=== PATIENT | male | born 1990 ===

== ENCOUNTER 2018-11-14 01:30 | Emergency (ER) | payer OTHER ==
[2018-11-14 01:54] VITALS: BP 145/83; PULSE 85; RESP 17; TEMP 98.3; O2SAT 99
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
--- NOTE | 2018-11-14 09:55 | RAD ---
PROCEDURE: Radiographs of the left great toe. TECHNIQUE:: AP radiograph of the left foot, with oblique and lateral view of the left great toe. COMPARISON: None. FINDINGS: BONES: Normal. No fracture. JOINTS: Normal. SOFT TISSUES: Normal. OTHER FINDINGS: None. IMPRESSION: Normal left great toe radiographs.
== END 2018-11-14 03:20 | disposition home or self-care (01) ==
LOC: H.ER 01:30
DX: S99.921A Unspecified injury of right foot, initial encounter (principal); S99.922A Unspecified injury of left foot, initial encounter; S40.012A Contusion of left shoulder, initial encounter; V43.52XA Car driver injured in collision with other type car in traffic accident, initial encounter; Y92.410 Unspecified street and highway as the place of occurrence of the external cause